=== PATIENT | female | born 2005 | race Caucasian/White ===

== ENCOUNTER 2025-02-08 19:36 | Emergency (ER) | payer SELFPAY ==
[2025-02-08] MEDS ORDERED: IBUPROFEN 200 MG TAB PO ONE (19:56)
[2025-02-08] MEDS ORDERED: ACETAMINOPHEN 500 MG TAB ONE (19:56)
--- NOTE | 2025-02-08 20:02 | EDPHYS ---
Physician Documentation [facility] Name: Chau Mosquera Age: 19 yrs Sex: Female : 2005 Arrival Date: 02/08/2025 Time: 19:36 Bed 12 Private MD: ED Physician Leopoldo Harris HPI: 02/09 18:02 This 19 yrs old Female presents to ER via EMS with complaints of Foot Pain. tt7 18:02 Patient complaining of bilateral foot pain after she was kicked out of her boyfriend's tt7 house and walked barefoot for several miles. She reports a couple of small blisters on her toes and a scratch on her right heel. She has no other complaints. No significant past medical history. No known allergies. 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 - Infectious Disease History:: Denies. - Social history:: Smoking status: Reported history of juuling and/or vaping. ROS: 02/09 18:03 Constitutional: negative for fever. Cardiovascular: negative for chest pain. tt7 Respiratory: negative for shortness of breath. Abdomen/GI: negative for abdominal pain, nausea, vomiting, diarrhea. MS/extremity: Positive for pain, Negative for deformity, ecchymosis, erythema, Exam: 18:04 Constitutional: vital signs reviewed, well appearing. Head/Face: normocephalic, tt7 atraumatic. Eyes: no conjunctival injection, anicteric sclerae. ENT: mucus membranes moist. Neck: trachea midline, no JVD. Cardiovascular: regular rate and rhythm, no lower extremity edema. Respiratory: normal respiratory effort, no accessory muscle use. Back: normal ROM. Skin: warm, dry, small <1cm superficial laceration to plantar surface of right heel MS/ Extremity: normal ROM of extremities, no gross deformities. Neuro: alert and oriented with appropriate mental status, normal speech, follows commands, no focal neurologic deficits. Psych: appropriate mood and affect. Vital Signs: 02/08 19:38 BP 106 / 70; Pulse 82; Resp 16; Temp 98.2; Pulse Ox 100% ; Weight 59.42 kg; Height 5 me1 ft. 6 in. ; Pain 4/10; 20:07 BP 111 / 68; Pulse 81; Resp 15; Temp 98.2; Pulse Ox 100% ; me1 19:38 Body Mass Index 21.14 (59.42 kg, 167.64 cm) - Percentile 43.3 % me1 19:38 Pain Scale: Adult me1 MDM: 19:56 Medical Screening Exam initiated tt7 02/09 18:05 Data reviewed: vital signs, nurses notes. ED course: Well-appearing 19-year-old female tt7 with a very tiny laceration to the bottom of her left heel, no deformity, neurovascularly intact distally to bilateral feet, injury is very superficial, local wound care completed and patient discharged with return precautions. 02/08 20:01 Order name: Wound Care; Complete Time: 20:04 tt7 Administered Medications: 02/08 20:07 Drug: Acetaminophen PO 1000 mg PO once Route: PO; me1 20:12 Follow up: Response: No adverse reaction; Pain is decreased me1 20:07 Drug: Ibuprofen PO 600 mg PO once Route: PO; me1 20:12 Follow up: Response: No adverse reaction; Pain is decreased me1 Disposition: 02/09 18:06 Co-signature as Attending Physician, Leopoldo Harris DO. tt7 Disposition Summary: 02/08/25 20:01 Discharge Ordered Notes: Location: Home tt7 Problem: new tt7 Symptoms: have improved tt7 Condition: Stable tt7 Diagnosis - Pain in right foot tt7 - Pain in left foot tt7 - Pain in foot and toes tt7 Followup: tt7 - With: Emergency Department - When: As needed - Reason: Discharge Instructions: - Discharge Summary Sheet tt7 - Wound Care, Adult tt7 Forms: - Medication Reconciliation Form tt7 - Antibiotic Education tt7 - Prescription Opioid Use tt7 - Patient Portal Instructions tt7 - Leadership Thank You Letter tt7 Signatures: Kim Rasmussen RN RN me1 Leopoldo Harris DO DO tt7
--- NOTE | 2025-02-08 20:02 | ER ---
Nurse's Notes [facility] Name: Chau Mosquera Age: 19 yrs Sex: Female : 2005 Arrival Date: 02/08/2025 Time: 19:36 Bed 12 Private MD: Diagnosis: Pain in right foot;Pain in left foot;Pain in foot and toes Presentation: 02/08 19:38 Chief complaint: EMS states: toned out for blisters on feet. Patient was walking home me1 from her boyfriends house barefooted. Pain 4/10 to bilat feet. Coronavirus screen: Vaccine status: Patient reports receiving the 2nd dose of the covid vaccine. Ebola Screen: No symptoms or risks identified at this time. Initial Sepsis Screen: Does the patient meet any 2 criteria? No. Patient's initial sepsis screen is negative. Does the patient have a suspected source of infection? No. Patient's initial sepsis screen is negative. Risk Assessment: Do you want to hurt yourself or someone else? Patient reports no desire to harm self or others. Onset of symptoms was February 08, 2025. 19:38 Method Of Arrival: EMS: [facility] [place] 19:38 Acuity: SAURABH 4 me1 Triage Assessment: 19:43 General: Appears uncomfortable, well developed, well nourished, Behavior is calm, me1 cooperative, appropriate for age, Reports was walking home from boyfriends house barefooted and has blisters to bottoms of bilateral feet. Pain: Complains of pain in right foot and left foot Pain does not radiate. Pain currently is 4 out of 10 on a pain scale. Quality of pain is described as tender, Pain began 2 hours ago. Is continuous. EENT: No signs and/or symptoms were reported regarding the EENT system. Neuro: Level of Consciousness is awake, alert, obeys commands, Oriented to person, place, time, situation, Appropriate for age. Cardiovascular: Patient's skin is warm and dry. Respiratory: Airway is patent Respiratory effort is even, unlabored, Respiratory pattern is regular, symmetrical. GI: No signs and/or symptoms were reported involving the gastrointestinal system. : No signs and/or symptoms were reported regarding the genitourinary system. Derm: Wound noted ball of right foot, heel of right foot, ball of left foot and heel of left foot Wound is blisters, intact. Musculoskeletal: Reports pain in right foot and left foot. Injury Description: walking on pavement barefooted, blisters to bottom of bilateral feet. 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 - Infectious Disease History:: Denies. - Social history:: Smoking status: Reported history of juuling and/or vaping. Screenin:46 [facility] ED Fall Risk Assessment (Adult) History of falling in the last 3 months, me1 including since admission No falls in past 3 months (0 pts) Confusion or Disorientation No (0 pts) Intoxicated or Sedated No (0 pts) Impaired Gait Yes (1 pt) Mobility Assist Device Used No (0 pt) Altered Elimination No (0 pt) Score/Fall Risk Level 0 - 2 = Low Risk Maintained a safe environment, Provided non-skid footwear, Hourly rounding (assess needs \T\ fall precautionary measures) done. Abuse screen: Denies threats or abuse. Nutritional screening: No deficits noted. Tuberculosis screening: No symptoms or risk factors identified. Assessment: 19:46 General: See triage assessment. me1 Vital Signs: 19:38 BP 106 / 70; Pulse 82; Resp 16; Temp 98.2; Pulse Ox 100% ; Weight 59.42 kg; Height 5 me1 ft. 6 in. ; Pain 4/10; 20:07 BP 111 / 68; Pulse 81; Resp 15; Temp 98.2; Pulse Ox 100% ; me1 19:38 Body Mass Index 21.14 (59.42 kg, 167.64 cm) - Percentile 43.3 % me1 19:38 Pain Scale: Adult il1 ED Course: 19:36 Patient arrived in ED. kmf 19:38 Kim Rasmussen, ANGELA is Primary Nurse. me1 19:41 Leopoldo Harris DO is Attending Physician. tt7 19:43 Triage completed. me1 19:43 Arm band placed on Patient placed in an exam room. me1 19:46 Patient has correct armband on for positive identification. Bed in low position. Call me1 light in reach. Side rails up X2. Provided Education on: POC. Verbalized understanding.. Client placed on continuous cardiac and pulse oximetry monitoring. NIBP monitoring applied. Pulse ox on. NIBP on. 19:46 No provider procedures requiring assistance completed. me1 20:07 Patient did not have IV access during this emergency room visit. me1 Administered Medications: 20:07 Drug: Acetaminophen PO 1000 mg PO once Route: PO; me1 20:12 Follow up: Response: No adverse reaction; Pain is decreased me1 20:07 Drug: Ibuprofen PO 600 mg PO once Route: PO; me1 20:12 Follow up: Response: No adverse reaction; Pain is decreased me1 Medication: 19:46 VIS not applicable for this client. me1 Outcome: 20:01 Discharge ordered by . tt7 20:12 Discharged to home ambulatory, me1 20:12 Condition: stable 20:12 Discharge instructions given to patient, Instructed on discharge instructions, follow up and referral plans. wound care, Demonstrated understanding of instructions, follow-up care, wound care, 20:12 Patient left the ED. me1 Signatures: Kim Rasmussen RN RN me1 Emily Balderas Travis, DO DO tt7
[2025-02-08 20:17] VITALS: TEMP 98.2; O2SAT 100
[2025-02-08 20:18] VITALS: BP 111/68
== END 2025-02-08 20:12 | disposition home or self-care (01) ==
LOC: ER 19:36
DX: M79.672 Pain in left foot (principal); M79.671 Pain in right foot; M79.675 Pain in left toe(s); M79.674 Pain in right toe(s); F17.290 Nicotine dependence, other tobacco product, uncomplicated
CPT/HCPCS: 99284